=== PATIENT | male | born 1985 | race Hispanic/Latino ===

== ENCOUNTER 2018-10-13 20:25 | Emergency (ER) | payer OTHER ==
[~2018-10-13] VITALS: Ht 182.9 cm; Wt 133.8 kg
--- NOTE | 2018-10-13 21:00 | NUR ---
PT REFUSED FOOT XRAY STATING "I DONT WANT THAT ON MY BILL. I WAS ABLE TO WALK ON IT FINE EARLIER SO I DOUBT ITS BROKEN" PT INFORMED OF THE REASON FOR XRAY AND THE NEED FOR IT BY ER MD AND PT STILL REFUSED.
[2018-10-13] MEDS ORDERED: KETOROLAC TROMETHAMINE 60 MG/2 ML VIAL IM ONE (21:15)
[2018-10-13] MEDS ORDERED: KETOROLAC TROMETHAMINE 60 MG/2 ML VIAL ONE (21:18)
== END 2018-10-13 21:40 | disposition home or self-care (01) ==
LOC: FSED 20:25
DX: S91.332A Puncture wound without foreign body, left foot, initial encounter (principal); W22.8XXA Striking against or struck by other objects, initial encounter; Y93.01 Activity, walking, marching and hiking; Y92.017 Garden or yard in single-family (private) house as the place of occurrence of the external cause; F17.210 Nicotine dependence, cigarettes, uncomplicated
CPT/HCPCS: 99283; J1885

== ENCOUNTER 2024-03-26 08:59 | Emergency (ER) | payer BC, OTHER ==
[~2024-03-26] VITALS: Ht 182.9 cm; Wt 140.6 kg
[2024-03-26 09:04] VITALS: PULSE 85; RESP 16; TEMP 97.7; O2SAT 100
[2024-03-26] MEDS ORDERED: NAPROXEN250 MG PO (10:00)
== END 2024-03-26 10:14 | disposition home or self-care (01) ==
LOC: ER 09:31
DX: S46.291A Other injury of muscle, fascia and tendon of other parts of biceps, right arm, initial encounter (principal); X50.0XXA Overexertion from strenuous movement or load, initial encounter; Y92.89 Other specified places as the place of occurrence of the external cause; Z86.718 Personal history of other venous thrombosis and embolism
CPT/HCPCS: 93971; 99284